=== PATIENT | male | born 1970 | race Caucasian/White ===

== ENCOUNTER 2020-12-12 08:13 | Outpatient (CLI) | payer BC, SELFPAY | END 2020-12-12 08:14 | disposition home or self-care (01) | LOC: ANHCOVIDVC 08:13 | PROVIDERS: PCP Internal Medicine | DX: Z23 Encounter for immunization (principal) | CPT/HCPCS: 0001A; 91300 ==

== ENCOUNTER 2021-01-02 08:11 | Outpatient (CLI) | payer BC, SELFPAY | END 2021-01-02 08:12 | disposition home or self-care (01) | LOC: ANHCOVIDVC 08:12 | PROVIDERS: PCP Internal Medicine | DX: Z23 Encounter for immunization (principal) | CPT/HCPCS: 0002A; 91300 ==

== ENCOUNTER 2021-11-24 00:44 | Day surgery (SDC) | payer BC, SELFPAY ==
[2021-11-10 13:07] VITALS: BMI 37.3
[2021-11-24 11:46] VITALS: BP 157/100; PULSE 76; RESP 16; TEMP 36.5; O2SAT 97; BMI 37.3
[2021-11-24] MEDS: LACTATED RINGERS 1,000 ML 150 ML IV CONT (11:56)
--- NOTE | 2021-11-24 12:18 | P.PNAN_ITS ---
Anes - Initial Pre Proc Eval Procedure: Operation Date: 11/24/21 13:00 Proposed Procedures p Colonoscopy - Jeff Grover MD Date/Time: 11/24/21 12:18 Surgeon: Jeff Grover MD Pre Op Diagnosis: rectal bleeding Patient Data Age: 51 Gender: M Height: 1.83 m Weight: 124.9 kg Last Vital Signs Temp 97.7 F 11/24/21 11:46 Pulse 76 11/24/21 11:46 Resp 16 11/24/21 11:46 BP 157/100 H 11/24/21 11:46 Pulse Ox 97 11/24/21 11:46 Allergies Allergy/AdvReac Type Severity Reaction Status Date / Time No Known Allergies Allergy Verified 11/24/21 11:45 Home Medications Medication Instructions Recorded Confirmed Type albuterol sulfate 2.5 mg INHALATION Q4-6H PRN #90 ml 10/10/19 11/24/21 Rx famotidine 40 mg tablet 40 mg PO DAILY 01/15/20 11/24/21 History ergocalciferol (vitamin D2) 1,250 50,000 unit PO 2XW #27 cap 08/14/20 11/24/21 Rx mcg (50,000 unit) capsule zolpidem 10 mg tablet 10 mg PO .QHS 90 Days #90 tablet 11/18/20 11/24/21 Rx allopurinol 300 mg tablet 300 mg PO DAILY #90 tablet 12/30/20 11/24/21 Rx rosuvastatin 10 mg tablet 10 mg PO DAILY #90 tablet 01/20/21 11/24/21 Rx perindopril erbumine 4 mg tablet 4 mg PO DAILY #90 tablet 01/23/21 11/24/21 Rx aspirin 81 mg PO DAILY 11/10/21 11/24/21 History icosapent ethyl [Vascepa] 4 g PO DAILY 11/10/21 11/24/21 History Patient hx anesthesia problems: none Family hx anesthesia problems: none Results Review: All pre-operative results and documents have been reviewed as part of the pre-operative evaluation. [facility] Past Medical History Medical History (Updated 08/05/20 @ 10:58 by Dianna Guillaume) Acid reflux Gout attack Hyperlipidemia Hypertension Sleep apnea Social History Social History Smoking status: Never smoker Second hand tobacco smoke exposure: No Alcohol intake: current Drinks per week: 4 Substance use: never Substance use type: does not use Living arrangements: with family Spiritual care concerns: No Anes - Eval Final PreProcedure Day of Procedure 11/24/21 12:18 Patient weight: obese Heart: regular rate and rhythm Lungs: clear to auscultation Airway: Mallampati scale class II Neurological: alert and oriented Last oral intake: >/= 8 hours ASA classification: III Emergent: no Anesthetic plan: proceed Anesthesia type and monitoring: general GIVS and standard monitoring Results Review: All pre-operative results and documents have been reviewed as part of the pre-operative evaluation. Informed Consent: The patient's anesthetic plan and its attendant risks and benefits were discussed with the patient/family/POA. Questions were solicited and answers provided to the satisfaction of the patient/family/POA.
[2021-11-24 12:45] VITALS: BP 112/69; PULSE 65; RESP 18; O2SAT 97
--- NOTE | 2021-11-24 12:47 | WPDGICN ---
Assessment and Plan Assessment and plan (1) Rectal bleeding: Code(s): K62.5 - Hemorrhage of anus and rectum Status: Acute Assessment and Plan: patient with new onset bright red blood per rectum typical for hemorrhoids. He has never had a colonoscopy now is above age 50. Plan is for colonoscopy to exclude polyps. Also to define the source of bleeding which appears to be from hemorrhoids. High-fiber diet is advised. Further recommendations will be given after endoscopy. (2) Hemorrhoids: Code(s): K64.9 - Unspecified hemorrhoids Status: Acute Assessment and Plan: Patient known to have hemorrhoids rectal bleeding appears to be from this. High-fiber diet is beneficial. Hemorrhoid cream may help with any discomfort but unlikely to help with bleeding. Because of ongoing bleeding surgical referral for hemorrhoid treatment is suggested. GI Consult Note Consult date/time: 11/24/21 12:47 HPI: Itz Dillard is a 51 year old male Presents for evaluation of bleeding. Patient reports after the last 4-6 months he has noticed bright red blood per rectum typically associated with bowel movements. He notes after a bowel movement he will wipe and have bright red blood per rectum. There is no blood in his bowel movements. He denies any abdominal or rectal pain. He has had no trauma. Reports his bowel habits are regular. Family history is noncontributory. He has never previously had a colonoscopy. Review of Systems Review of Systems: All systems reviewed & are unremarkable except as noted in HPI and below PMFSH Past Medical History Medical History (Updated 11/24/21 @ 12:46 by Jeff Grover MD) Acid reflux Gout attack Hyperlipidemia Hypertension Sleep apnea Social History Social History Smoking status: Never smoker Second hand tobacco smoke exposure: No Alcohol intake: current Drinks per week: 4 Substance use: never Substance use type: does not use Living arrangements: with family Spiritual care concerns: No Meds Home Medications and Allergies Home Medications Medication Instructions Recorded Confirmed Type albuterol sulfate 2.5 mg INHALATION Q4-6H PRN #90 ml 10/10/19 11/24/21 Rx famotidine 40 mg tablet 40 mg PO DAILY 01/15/20 11/24/21 History ergocalciferol (vitamin D2) 1,250 50,000 unit PO 2XW #27 cap 08/14/20 11/24/21 Rx mcg (50,000 unit) capsule zolpidem 10 mg tablet 10 mg PO .QHS 90 Days #90 tablet 11/18/20 11/24/21 Rx allopurinol 300 mg tablet 300 mg PO DAILY #90 tablet 12/30/20 11/24/21 Rx rosuvastatin 10 mg tablet 10 mg PO DAILY #90 tablet 01/20/21 11/24/21 Rx perindopril erbumine 4 mg tablet 4 mg PO DAILY #90 tablet 01/23/21 11/24/21 Rx aspirin 81 mg PO DAILY 11/10/21 11/24/21 History icosapent ethyl [Vascepa] 4 g PO DAILY 11/10/21 11/24/21 History Allergies Allergy/AdvReac Type Severity Reaction Status Date / Time No Known Allergies Allergy Verified 11/24/21 11:45 Vital Signs Vital Signs - 24 hr 11/24/21 11:46 Temperature 97.7 F Pulse Rate 76 Respiratory Rate 16 Blood Pressure 157/100 H Pulse Oximetry 97 Exam Narrative: Physical exam reveals patient to be alert. Vital signs stable. HEENT exam is unremarkable. Patient is anicteric. Lungs are clear to auscultation and percussion. Heart is without murmur or extra sounds. Abdominal exam bowel sounds are present soft nontender with no hepatosplenomegaly. Digital external rectal exam reveals external hemorrhoids.
[2021-11-24 12:55] VITALS: BP 113/73; PULSE 66; RESP 22; O2SAT 98
[2021-11-24 13:05] VITALS: BP 129/79; PULSE 66; RESP 16; O2SAT 99
== END 2021-11-24 13:10 | disposition home or self-care (01) ==
PROVIDERS: PCP Internal Medicine; Visit Provider Internal Medicine Gastroenterology
PROC: 0DJD8ZZ Inspection of Lower Intestinal Tract, Via Natural or Artificial Opening Endoscopic (ICD-10-PCS; CPT 45378; principal; 2021-11-24 13:00)
DX: Z12.11 Encounter for screening for malignant neoplasm of colon (principal); K62.5 Hemorrhage of anus and rectum; K64.8 Other hemorrhoids; K64.4 Residual hemorrhoidal skin tags; K57.30 Diverticulosis of large intestine without perforation or abscess without bleeding; Z79.82 Long term (current) use of aspirin; Z79.51 Long term (current) use of inhaled steroids; K21.9 Gastro-esophageal reflux disease without esophagitis; M10.9 Gout, unspecified; I10 Essential (primary) hypertension; E78.5 Hyperlipidemia, unspecified; G47.30 Sleep apnea, unspecified; E66.9 Obesity, unspecified; Z68.37 Body mass index [BMI] 37.0-37.9, adult
CPT/HCPCS: 45378; J2704; J7120

== ENCOUNTER 2023-03-18 14:45 | Outpatient (RCR) | payer BC, SELFPAY ==
--- NOTE | 2023-03-12 16:54 | PTOPEVAL1 ---
Assessment and note entered by Rubina Hill, PT Evaluation Information Assessment Status Evaluation Diagnosis cervicalgia Onset 6-8 weeks ago Subjective Information Reports went to chiropractor and this did not correct problem. Saw his provider and was provided muscle relaxers help at night but make him groggy during the day. Ice and heat and theragun may give 1-2 hours of relief but once gets into a back position will pinch and grab . 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 Reported Pain Level Pain Score 3: Self Report Assessment PT Clinical Summary Pt presents with complaints of left sided neck pain that has persisted approx 6-8 weeks. Attempted chiropractic for this without success. Demo's cervical ROM approx 75% of normal with movement pattern and palpation suggesting impingement of high cervical spine facet. Pt also demos abnormal postures and multiple tight muscles in the surrounding areas. Pt will benefit from physical therapy to address deficits, improve discomfort and return to prior level of function painfree. Plan of Care Interventions Electrical Stimulation,Hot Pack/Cold Pack,Manual Therapy,Mechanical Traction,Neuro Re-education, Patient/Caregiver Educati,Therapeutic Activities, Therapeutic Exercise,Ultrasound PT Services Indicated Yes Treatment Frequency and 1-2x weekly x 8 weeks Duration These treatments will address the objective and functional deficits as defined above. The patient will be advanced safely and appropriately in order for the patient to progress towards his/her prior level of function. Additional exercises will be introduced and as well as a comprehensive home exercise program upon discharge, if needed, ?to ensure carryover of functional gains achieved in the clinic. This treatment plan has been reviewed and agreement upon by the patient.
--- NOTE | 2023-03-12 16:54 | OPREHPOC ---
Outpatient Therapy Plan of Care This is a Multidisciplinary Plan of Care that may contain components documented by all disciplines (PT, OT, and ST.) PT Problem 1 PT Problem #1 Knowledge Deficit PT Goal 1 Goal Pt will be independent in HEP Target Visit 8 PT Goal 2 Goal Pt will verbalize understanding of diagnosis and prognosis Target Visit 8 PT Problem 2 PT Problem #2 Pain PT Goal 1 Goal Pt will report greatest pain level at 3/10 or less Target Visit 8 PT Goal 2 Goal Pt will report resolution of pain Target Visit 16 PT Problem 3 PT Problem #3 Impaired Range of Motion PT Goal 1 Goal Pt will demo full ROM of cervical spine without pain Target Visit 16 PT Goal 2 Goal Pt will demo thoracic ROM of 75% or greater in tested planes Target Visit 8 PT Problem 4 PT Problem #4 Impaired Flexibility PT Goal 1 Goal Pt will demo improved scapular and cervical postures Target Visit 16
--- NOTE | 2023-03-24 15:35 | PCPTNOTE ---
Patient called & cancelled scheduled appointment this date due to being out of town.
== END 2023-05-03 15:00 | disposition home or self-care (01) ==
LOC: ANHHIPT 14:45
PROVIDERS: PCP Nurse Practitioner Family; Visit Provider Nurse Practitioner Family
DX: M54.2 Cervicalgia (principal)
CPT/HCPCS: 97014; 97110; 97140; G0283

== ENCOUNTER 2024-08-07 08:29 | Emergency (ER) | payer OTHER, SELFPAY ==
[2024-08-07 08:45] VITALS: BP 162/106; PULSE 68; RESP 18; TEMP 36.2; O2SAT 99
--- NOTE | 2024-08-07 08:46 | ED.URI ---
HPI - URI/Sore Throat General Chief Complaint: Upper Respiratory Infection Stated Complaint: sinus infection Source: patient, RN notes reviewed and old records reviewed Mode of arrival: ambulatory Limitations: no limitations History of Present Illness HPI Narrative: patient presents with sinus congestion. He reports that he began with a slight cough and runny nose about a month ago. Says that he has developed some sinus pain and pressure over the past several days. He reports headache, fatigue, purulent nasal drainage. He denies any injury or trauma. He denies fever, chills, sweats Related Data Home Medications Medication Instructions Recorded Confirmed aspirin 81 mg capsule 81 mg PO DAILY 11/10/21 08/07/24 omeprazole magnesium 20 mg 20 mg PO DAILY 05/14/22 08/07/24 capsule,delayed release (Acid Director Statistical Programming (omeprazole)) Allergies Allergy/AdvReac Type Severity Reaction Status Date / Time Bee sting Allergy Severe Anaphylaxis Uncoded 08/07/24 08:45 Review of Systems Review of Systems: All systems reviewed & are unremarkable except as noted in HPI and below Constitutional: Constitutional: Reports as per HPI and Reports no additional constitutional complaints ENT: Reports system reviewed and no additional complaints, except as documented, Reports as per HPI, Reports headache(s), Reports nasal congestion, Reports nasal discharge and Reports sinus pressure Cardiovascular: Cardiovascular: Reports no additional cardiovascular complaints Respiratory: Respiratory: Reports no additional respiratory complaints Gastrointestinal: Gastrointestinal: Reports no additional gastrointestinal complaints [facility] Past Medical History Medical History Acid reflux Gout attack Hyperglycemia Hyperlipidemia Insomnia Kidney stone Seasonal allergies Sleep apnea Vitamin deficiency, unspecified Surgical History Surgical History History of right knee surgery Family History Family History Mother Heart disease Depression Hypothyroid Grandparent Ovarian cancer Other Esophageal cancer Grandparent Heart disease Social History Social History Social History: declined to answer SDOH Smoking status: Never smoker Second hand tobacco smoke exposure: No Alcohol intake: current Drinks per week: 4 Substance use: never Substance use type: does not use Living arrangements: with family Occupation/Education: occupation Additional occupation/education comments: President, [email or web address] Spiritual care concerns: No Comments At the time of my signature, I reviewed and agree with the nursing past medical, surgical, social, and family history. There is no relevant family history pertinent to the patient complaint. Exam Const: General: cooperative, no acute distress, alert and awake Orientation/consciousness: oriented to person, oriented to place and oriented to time HENMT: Head: normal to inspection Face/Nose/Sinus: sinus tenderness Mouth: Yes moist mucous membranes Resp: Effort & Inspection: normal respiratory effort and able to speak in complete sentences Auscultation: clear to auscultation bilaterally, no crackles, no rales, no rhonchi and no wheezes Cardio: Palpation: normal PMI Rate: regular rate Rhythm: regular rhythm Heart sounds: S1 normal heart sound present and S2 normal heart sound present Neuro: General: oriented to person, oriented to place and oriented to time Cranial nerves: Yes CN's II-XII intact bilaterally Psych: Appearance: grossly normal Thought process: Normal thought process present Insight: Good insight present (Psych) Judgement: Good judgement present (Psych) Course Course Level of Care: Express Care Visit Vital Signs Vital signs: Reviewed MDM - URI/Sore Throat MDM Narrative Medical decision making narrative: patient with sinus tenderness on palpation, sick for about a month. Nontoxic appearing, stable for discharge home with p.o. antibiotics for sinusitis, short prednisone burst. Discharge instructions reviewed with patient, as well as provided in writing per nursing staff. The instructions also include specific and strict return/GO TO THE ER as well as f/u information. All questions have been answered, and the patient deny any further questions with discharge and discharge plan. Some parts of this dictation were generated by voice recognition software and may contain typographical and/or grammatical inaccuracies. Differential Diagnosis Differential diagnosis: Likely upper respiratory infection, otitis media, bronchitis, influenza and pharyngitis Medical Records Attestation: I reviewed the patient's medical records. Discharge Plan Discharge Clinical Impression: Elevated blood pressure reading Sinusitis Qualifiers: Sinusitis location: frontal Chronicity: acute Recurrence: not specified as recurrent Qualified Code(s): J01.10 - Acute frontal sinusitis, unspecified Patient Disposition: Home, Self-Care Condition: Critical Instructions: Antibiotic Form, Sinusitis (ED) Additional Instructions: Take all medications as prescribed. Please follow-up with primary care provider. Your blood pressure is elevated today, please discuss this. Emergency department for any new or worse symptoms Patient Language: Sinhala Prescriptions: New doxycycline hyclate 100 mg capsule 100 mg PO BID 10 Days Qty: 20 0RF prednisone 50 mg tablet 50 mg PO DAILY Qty: 5 0RF No Action epinephrine 0.3 mg/0.3 mL auto-injector 0.3 mg IM Q15M PRN (Reason: anaphylaxis) Qty: 2 0RF Rx Instructions: for 2 doses omeprazole magnesium [Acid Director Statistical Programming (omeprazole)] 20 mg capsule,delayed release(DR/EC) 20 mg PO DAILY aspirin 81 mg Capsule 81 mg PO DAILY allopurinol 300 mg tablet 300 mg PO DAILY Qty: 90 1RF ergocalciferol (vitamin D2) [Vitamin D2] 1,250 mcg (50,000 unit) capsule 50,000 unit PO 2XW Qty: 27 1RF fenofibrate nanocrystallized 145 mg tablet See Rx Instructions .ROUTE .COMPLEX Qty: 90 1RF Dose Instruction: Take 1 tablet by mouth once daily Rx Instructions: Take 1 tablet by mouth once daily zolpidem 12.5 mg tablet,ext release multiphase 12.5 mg PO QHS PRN (Reason: insomnia) Qty: 30 0RF rosuvastatin 10 mg tablet See Rx Instructions .ROUTE .COMPLEX Qty: 90 1RF Dose Instruction: Take 1 tablet by mouth once daily Rx Instructions: Take 1 tablet by mouth once daily perindopril erbumine 8 mg tablet 8 mg PO DAILY Qty: 90 0RF Follow-up/Referrals: Yasmine Her APN-C [Primary Care Provider] - 2 Weeks Time of Disposition: 08:58
== END 2024-08-07 09:00 | disposition home or self-care (01) ==
PROVIDERS: Emergency Provider Nurse Practitioner Family; PCP Nurse Practitioner Family
DX: R03.0 Elevated blood-pressure reading, without diagnosis of hypertension (principal); J01.10 Acute frontal sinusitis, unspecified; K21.9 Gastro-esophageal reflux disease without esophagitis; M10.9 Gout, unspecified; E78.5 Hyperlipidemia, unspecified; Z79.82 Long term (current) use of aspirin
CPT/HCPCS: 99213; G0463

== ENCOUNTER 2024-09-29 13:39 | Emergency (ER) | payer OTHER, SELFPAY ==
[2024-09-29 13:52] VITALS: BP 161/97; PULSE 76; RESP 18; TEMP 36.5; O2SAT 98
--- NOTE | 2024-09-29 14:01 | ED_ITS ---
HPI - URI/Sore Throat General Chief Complaint: Upper Respiratory Infection Stated Complaint: Chest Tightness Time Seen by Provider: 09/29/24 14:00 Source: patient Mode of arrival: ambulatory Limitations: no limitations History of Present Illness HPI Narrative: Itz is a 54-year-old male patient presenting to the clinic today with complaints cough, chest tightness, raspy voice, and nasal congestion. He reports symptoms been going on for 3 days. Cough is productive at times. Denies any fevers, chills, body aches. Denies any chest pain. States several weeks ago his was treated for walking pneumonia. MD elicited complaint: cough and nasal congestion Related Data Home Medications ?Medication ?Instructions ?Recorded ?Confirmed ?Last Taken ?Type aspirin 81 mg capsule 81 mg PO DAILY 11/10/21 08/07/24 11/23/21 History omeprazole magnesium 20 mg 20 mg PO DAILY 05/14/22 08/07/24 Unknown History capsule,delayed release (Acid Flow Coordinator (omeprazole)) Allergies Allergy/AdvReac Type Severity Reaction Status Date / Time bee pollen Allergy Severe Anaphylaxis Verified 09/29/24 14:02 Review of Systems Review of Systems: Pertinent positives per HPI. Patient denies any fever, chills, rash, headache, visual changes, dizziness, shortness of breath, chest pain, palpitations, nausea, vomiting, diarrhea, constipation, abdominal pain, or any urinary issues. [facility] Past Medical History Medical History Acid reflux Gout attack Hyperglycemia Hyperlipidemia Insomnia Kidney stone Seasonal allergies Sleep apnea Vitamin deficiency, unspecified Surgical History Surgical History History of right knee surgery Family History Family History Mother Heart disease Depression Hypothyroid Grandparent Ovarian cancer Other Esophageal cancer Grandparent Heart disease Social History Social History Social History: declined to answer SDOH Smoking status: Never smoker Second hand tobacco smoke exposure: No Alcohol intake: current Drinks per week: 4 Substance use: never Substance use type: does not use Living arrangements: with family Occupation/Education: occupation Additional occupation/education comments: President, [email or web address] Spiritual care concerns: No Comments At the time of my signature, I reviewed and agree with the nursing past medical, surgical, social, and family history. There is no relevant family history pertinent to the patient complaint. Exam Narrative: General: Well-developed, well nourished, in no apparent distress Head: Normocephalic, atraumatic Eyes: Pupils equally round and reactive to light bilaterally, EOM intact, sclera and conjunctive clear, no discharge, lids normal Ears: TMs intact and clear, ear canals clear, no drainage, grossly hearing normal. Nose: Nares patent, no discharge, no inflammation, no sinus tenderness. Mouth: Oral pharynx without lesions or masses, good dentition, MMM. Neck: Supple, trachea midline, no enlargement of anterior or posterior cervical nodes, no thyroid masses or goiter palpable. Cardio: Regular rate and rhythm, s1 and s2 normal, no murmur appreciated. Resp: Clear to auscultation bilaterally, no rhonchi, rales, wheezing or rubs Course Course Emergency Course: Portions of this record may have been created with voice recognition software. Level of Care: Express Care Visit Vital Signs Vital signs: Vital Signs Temperature 36.5 C 09/29/24 13:52 Pulse Rate 76 09/29/24 13:52 Respiratory Rate 18 09/29/24 13:52 Blood Pressure 161/97 H 09/29/24 13:52 Pulse Oximetry 98 09/29/24 13:52 Oxygen Delivery Room Air 09/29/24 13:52 Temperature 36.5 C 09/29/24 13:52 Pulse Rate 76 09/29/24 13:52 Respiratory Rate 18 09/29/24 13:52 Blood Pressure 161/97 H 09/29/24 13:52 Pulse Oximetry 98 09/29/24 13:52 Oxygen Delivery Room Air 09/29/24 13:52 Vital signs reviewed MDM - URI/Sore Throat MDM Narrative Medical decision making narrative: At the time of visit patient is resting comfortably on the exam table. Patient appears to be nontoxic. Plan: I suspect patient has URI with cough and congestion/bronchitis. Albuterol inhaler and prednisone was sent to the pharmacy. Supportive measures were discussed with the patient and they voiced understanding discharge instructions and agrees to treatment plan. Return precautions reviewed Differential Diagnosis Differential diagnosis: Likely upper respiratory infection, otitis media, sinusitis, viral infection, bronchitis, influenza, pharyngitis and other (COVID) Discharge Plan Discharge Clinical Impression: Bronchitis, Upper respiratory infection with cough and congestion Patient Disposition: Home, Self-Care Condition: Stable Instructions: Antibiotic Form, Acute Bronchitis (ED), Cold Symptoms (ED) Additional Instructions: Take prescription medications only as prescribed-albuterol inhaler and prednisone Increase fluids and stay well hydrated Tylenol/motrin for pain/fever Flonase and OTC antihistamines as directed Vicks vapor rub to open sinuses Sinus rinses for congestion Cepacol spray, cough drops, throat lozenges, warm tea with honey/lemon, gargle salt water to soothe throat BRAT diet for diarrhea Clear liquids x 24 hours then advance as tolerated for nausea/vomiting Go to the ED if you develop a worsening in your condition- high fever not controlled by Tylenol or Motrin, dehydration, weakness, lethargy, shortness of breath, or chest pain. Follow up with your PCP in 3-5 days if symptoms persist. Patient Language: Chinese Prescriptions: New prednisone 20 mg tablet 40 mg PO DAILY 5 Days Qty: 10 0RF albuterol sulfate 90 mcg/actuation HFA aerosol inhaler 2 puff inhalation Q4-6H PRN (Reason: shortness of breath or wheezing) 30 Days Qty: 8.5 0RF No Action epinephrine 0.3 mg/0.3 mL auto-injector 0.3 mg IM Q15M PRN (Reason: anaphylaxis) Qty: 2 0RF Rx Instructions: for 2 doses omeprazole magnesium [Acid Flow Coordinator (omeprazole)] 20 mg capsule,delayed release(DR/EC) 20 mg PO DAILY aspirin 81 mg Capsule 81 mg PO DAILY ergocalciferol (vitamin D2) [Vitamin D2] 1,250 mcg (50,000 unit) capsule 50,000 unit PO 2XW Qty: 27 1RF rosuvastatin 10 mg tablet See Rx Instructions .ROUTE .COMPLEX Qty: 90 1RF Dose Instruction: Take 1 tablet by mouth once daily Rx Instructions: Take 1 tablet by mouth once daily perindopril erbumine 8 mg tablet 8 mg PO DAILY Qty: 90 0RF allopurinol 300 mg tablet 300 mg PO DAILY Qty: 90 1RF fenofibrate nanocrystallized 145 mg tablet See Rx Instructions .ROUTE .COMPLEX Qty: 90 1RF Dose Instruction: Take 1 tablet by mouth once daily Rx Instructions: Take 1 tablet by mouth once daily zolpidem 12.5 mg tablet,ext release multiphase 12.5 mg PO QHS PRN (Reason: insomnia) Qty: 30 0RF Follow-up/Referrals: Yasmine Her APN-C [Primary Care Provider] - Time of Disposition: 14:10 Quality NIHSS Nursing Documentation ED NIHSS nursing documentation: reviewed/agree
== END 2024-09-29 14:14 | disposition home or self-care (01) ==
PROVIDERS: Emergency Provider Nurse Practitioner Family; PCP Nurse Practitioner Family
DX: J40 Bronchitis, not specified as acute or chronic (principal); J06.9 Acute upper respiratory infection, unspecified; E78.5 Hyperlipidemia, unspecified; E55.9 Vitamin D deficiency, unspecified; Z79.82 Long term (current) use of aspirin
CPT/HCPCS: 99213; G0463

== ENCOUNTER 2024-12-16 10:56 | Emergency (ER) | payer OTHER, SELFPAY ==
--- NOTE | 2024-12-16 10:58 | ED.URI ---
HPI - URI/Sore Throat General Chief Complaint: Upper Respiratory Infection Stated Complaint: Sinus Infection Time Seen by Provider: 12/16/24 10:57 Source: patient Mode of arrival: ambulatory Limitations: no limitations History of Present Illness HPI Narrative: Itz is a 54-year-old male patient presenting to the clinic today with complaints of possible sinus infection. He reports for 2 days he has had sinus pressure on the left side, cough, headache, congestion, and body aches. States he has been doing a lot a travel over the last 2 weeks. States he when of to [place] and then went down to [place]. Denies any chest pain or shortness of breath. States he normally gets sinus infections around this time a year. He is taking Claritin for his symptoms. MD elicited complaint: sore throat and nasal congestion Related Data Home Medications ?Medication ?Instructions ?Recorded ?Confirmed ?Last Taken ?Type aspirin 81 mg capsule 81 mg PO DAILY 11/10/21 11/13/24 11/23/21 History omeprazole magnesium 20 mg 20 mg PO DAILY 05/14/22 11/13/24 Unknown History capsule,delayed release (Acid Ophthalmic Lens Inspector (omeprazole)) Allergies Allergy/AdvReac Type Severity Reaction Status Date / Time bee pollen Allergy Severe Anaphylaxis Verified 12/16/24 11:01 Review of Systems Review of Systems: Pertinent positives per HPI. Patient denies any fever, chills, rash, visual changes, dizziness, shortness of breath, chest pain, palpitations, nausea, vomiting, diarrhea, constipation, abdominal pain, or any urinary issues. PMFSH Past Medical History Medical History Kidney stone Seasonal allergies Hyperglycemia Vitamin deficiency, unspecified Insomnia Sleep apnea Acid reflux Hyperlipidemia Gout attack Surgical History Surgical History History of right knee surgery Family History Family History Mother Heart disease Depression Hypothyroid Grandparent Ovarian cancer Other Esophageal cancer Grandparent Heart disease Social History Social History Social History: declined to answer SDOH Smoking status: Never smoker Second hand tobacco smoke exposure: No Alcohol intake: current Drinks per week: 4 Substance use: never Substance use type: does not use Living arrangements: with family Occupation/Education: occupation Additional occupation/education comments: President, [employer].no care concerns: No Comments At the time of my signature, I reviewed and agree with the nursing past medical, surgical, social, and family history. There is no relevant family history pertinent to the patient complaint. Exam Narrative: General: Well-developed, well nourished, in no apparent distress Head: Normocephalic, atraumatic Eyes: Pupils equally round and reactive to light bilaterally, EOM intact, sclera and conjunctive clear, no discharge, lids normal Ears: TMs intact and clear, ear canals clear, no drainage, grossly hearing normal. Nose: Nares patent, clear nasal discharge, mild inflammation, no sinus tenderness. Mouth: Oral pharynx without lesions or masses, good dentition, MMM. Postnasal drip Neck: Supple, trachea midline, no enlargement of anterior or posterior cervical nodes, no thyroid masses or goiter palpable. Cardio: Regular rate and rhythm, s1 and s2 normal, no murmur appreciated. Resp: Clear to auscultation bilaterally, no rhonchi, rales, wheezing or rubs Course Course Emergency Course: Portions of this record may have been created with voice recognition software. Level of Care: Express Care Visit Vital Signs Vital signs: Vital Signs Temperature 36.3 C L 12/16/24 11:05 Pulse Rate 77 12/16/24 11:05 Respiratory Rate 17 12/16/24 11:05 Blood Pressure 144/93 H 12/16/24 11:05 Pulse Oximetry 98 12/16/24 11:05 Oxygen Delivery Room Air 12/16/24 11:05 Temperature 36.3 C L 12/16/24 11:05 Pulse Rate 77 12/16/24 11:05 Respiratory Rate 17 12/16/24 11:05 Blood Pressure 144/93 H 12/16/24 11:05 Pulse Oximetry 98 12/16/24 11:05 Oxygen Delivery Room Air 12/16/24 11:05 Vital signs reviewed MDM - URI/Sore Throat MDM Narrative Medical decision making narrative: At the time of visit patient is resting comfortably on the exam table. Patient appears to be nontoxic. Labs: COVID and influenza testing was performed. COVID testing was negative. Influenza testing was positive for influenza A. Plan: Patient has influenza A. Prescription for Tamiflu was sent to the pharmacy. Risk and benefits of the medication was explained to the patient he voiced understanding would like this medication prescribed. Supportive measures were discussed with the patient and they voiced understanding discharge instructions and agrees to treatment plan. Return precautions reviewed Differential Diagnosis Differential diagnosis: Likely upper respiratory infection, otitis media, sinusitis, viral infection, bronchitis, influenza, pharyngitis and other (COVID) Lab Data Labs: Lab Results 12/16/24 12/16/24 Range/Units 11:29 11:30 POC Influenza A Ag Positive (Negative) POC Influenza B Ag Negative (Negative) POC SARS CoV-2 Ag Negative (Negative) Discharge Plan Discharge Clinical Impression: Influenza A Patient Disposition: Home, Self-Care Condition: Stable Instructions: Antibiotic Form, Influenza (ED) Additional Instructions: Influenza A testing is positive in the clinic today. COVID testing is negative Take prescription medications only as prescribed May take Coricidin HBP for cold/flu symptoms Increase fluids and stay well hydrated Tylenol/motrin for pain/fever Flonase and OTC antihistamines as directed Vicks vapor rub to open sinuses Sinus rinses for congestion Cepacol spray, cough drops, throat lozenges, warm tea with honey/lemon, gargle salt water to soothe throat BRAT diet for diarrhea Clear liquids x 24 hours then advance as tolerated for nausea/vomiting Go to the ED if you develop a worsening in your condition- high fever not controlled by Tylenol or Motrin, dehydration, weakness, lethargy, shortness of breath, or chest pain. Follow up with your PCP in 3-5 days if symptoms persist. Patient Language: Faroese Prescriptions: New oseltamivir [Tamiflu] 75 mg capsule 75 mg PO Q12H 5 Days Qty: 10 0RF No Action albuterol sulfate 90 mcg/actuation HFA aerosol inhaler 2 puff inhalation Q4-6H PRN (Reason: shortness of breath or wheezing) 30 Days Qty: 8.5 0RF epinephrine 0.3 mg/0.3 mL auto-injector 0.3 mg IM Q15M PRN (Reason: anaphylaxis) Qty: 2 0RF Rx Instructions: for 2 doses omeprazole magnesium [Acid Ophthalmic Lens Inspector (omeprazole)] 20 mg capsule,delayed release(DR/EC) 20 mg PO DAILY perindopril erbumine 8 mg tablet 16 mg PO DAILY Qty: 180 0RF aspirin 81 mg Capsule 81 mg PO DAILY rosuvastatin 10 mg tablet See Rx Instructions .ROUTE .COMPLEX Qty: 90 1RF Dose Instruction: Take 1 tablet by mouth once daily Rx Instructions: Take 1 tablet by mouth once daily allopurinol 300 mg tablet 300 mg PO DAILY Qty: 90 1RF fenofibrate nanocrystallized 145 mg tablet See Rx Instructions .ROUTE .COMPLEX Qty: 90 1RF Dose Instruction: Take 1 tablet by mouth once daily Rx Instructions: Take 1 tablet by mouth once daily ergocalciferol (vitamin D2) [Vitamin D2] 1,250 mcg (50,000 unit) capsule 50,000 unit PO 2XW Qty: 27 1RF zolpidem 12.5 mg tablet,ext release multiphase 12.5 mg PO QHS PRN (Reason: insomnia) Qty: 30 0RF Follow-up/Referrals: Yasmine Her APNRadhaC [Primary Care Provider] - Time of Disposition: 11:32 Quality NIHSS Nursing Documentation ED NIHSS nursing documentation: reviewed/agree
--- OUTSIDE RECORDS SUMMARY | 2024-12-16 10:59 | XMS_ITS | Clinical Summary ---
Author Organization [facility] Address [address] [place] [address] Care Team Providers Care Perl Software Engineer Name Role Phone Breezy Marmolejo MD Primary Care Provider [phone] Allergies Active Allergy Reactions Criticality Noted Date Comments Insect Stings Swelling 04/26/2022 Medications EPINEPHrine 0.3 MG/0.3ML injection Inject 0.3 mLs (0.3 mg total) into the muscle as needed for Anaphylaxis. 1 each 05/07/2019 Active allopurinol (ZYLOPRIM) 300 MG tablet Take 300 mg by mouth daily. 08/12/2022 Active vitamin D2, ergocalciferol, (DRISDOL) 75669 UNITS capsule Take 50,000 Units by mouth twice a week. 08/23/2022 Active VASCEPA 1 g capsule TAKE 4 CAPSULES BY MOUTH ONCE DAILY 08/15/2022 Active Loratadine 10 MG Cap Active Perindopril Erbumine 4 MG Tab Take 1 tablet by mouth daily. 08/21/2022 Active rosuvastatin (CRESTOR) 10 MG tablet Take 10 mg by mouth daily. 07/20/2022 Active zolpidem (AMBIEN) 10 MG tablet Take 10 mg by mouth nightly at bedtime. at bedtime. 08/11/2022 Active fluticasone propionate (FLONASE) 50 MCG/ACT nasal sprayIndication s:Acute frontal sinusitis, recurrence not specified 1 spray by Each Nostril route daily. 16 g 09/01/2022 Active albuterol sulfate HFA 108 (90 Base) MCG/ACT inhalerIndicati ons:Acute cough Inhale 2 puffs into the lungs every 6 (six) hours as needed for Wheezing. 18 g 09/01/2022 Active Active Problems No known active problems Social History Tobacco Use Types Packs/Day Years Used Date Smoking Tobacco: Never Smokeless Tobacco: Never Tobacco Cessation:Counseling Given: No Alcohol Use Standard Drinks/Week Comments Yes 0 (1 standard drink = 0.6 oz pur e alcohol) occassional AUDIT-C Answer Date Recorded Frequency of Alcohol Consumption Never 05/07/2019 Average Number of Drinks Not on file 019 Frequency of Binge Drinking Not on file 04/27 PHQ-2 Answer Date Recorded PHQ-2 Score - If the patient scores above 3, please move on to questions 3-9 0 09/01/2022 Sex and Gender Information Value Date Recorded Sex Assigned at Not on file Legal Sex Male 6:25 PM CDT Gender Identity Not on file Sexual Orientation Not on file Last Filed Vital Signs Vital Sign Reading Time Taken Comments Blood Pressure 164/92 09/01/2022 12:41 PM [employer] Pulse 66 09/01/2022 12:41 PM [employer] Temperature 36.7 C (98 F) 09/01/2022 12:41 PM [employer] LE[employer] Respiratory Rate 16 09/01/2022 12:4 1 PM [employer] Oxygen Saturation 97% 09/01/2022 12: 41 PM [employer] Inhaled Oxygen Concentration - - Weight 126.2 kg (278 lb 3.2 oz) 022 12:41 PM [employer] Height 182.9 cm (6') 09/01/2022 12:41 PM [employer] LE[employer] Body Mass Index 37.73 09/01/2022 12:41 PM [employer] LE[employer] Plan of Treatment Health Maintenance Due Date Last Done Comments Colorectal Cancer Screening Colonoscopy (10 Years) 1970 Annual Physical 1973 Hepatitis C 1988 DTaP, Tdap and Td Vaccines ( 1 - Tdap) 1989 Hepatitis B Vaccines (1 of 3 - 19+ 3-dose series) 1989 Zoster Vaccines (1 of 2) 2020 COVID-19 Vaccine (3 - 2023-2 5 season) 2024 01/02/2021, 12/12/2020 Influenza Adult (#1) 2024 Meningococcal B Vaccine Aged Out No l onger eligible based on patient's age to complete this topic Meningococcal Vaccine Aged Out No shelley danielle eligible based on patient's age to complete this topic Pneumococcal Vaccine: Pediatrics (0 to 5 Years) and At-Risk Patients (6 to 64 Years) Aged Out No longer eligible b ased on patient's age to complete this topic RSV Immunizations Under 20 Months Aged Out No longer eligible b ased on patient's age to complete this topic Insurance [facility] Care Teams Perl Software Engineer Relationship Specialty Start Date End Date Breezy Marmolejo MD [address] [place] [id number] PCP - General INTERNAL MEDICINE 04/26/22
[2024-12-16 11:05] VITALS: BP 144/93; PULSE 77; RESP 17; TEMP 36.3; O2SAT 98
[2024-12-16 11:30] LABS: EDCOVIDSCREEN Negative (Negative)
[2024-12-16 11:32] LABS: EDINFLUASCREEN Positive (Negative); EDINFLUBSCREEN Negative (Negative)
== END 2024-12-16 11:34 | disposition home or self-care (01) ==
PROVIDERS: Emergency Provider Nurse Practitioner Family; PCP Nurse Practitioner Family
DX: J10.1 Influenza due to other identified influenza virus with other respiratory manifestations (principal); Z20.822 Contact with and (suspected) exposure to COVID-19
CPT/HCPCS: 87426; 87804; 99213; G0463